=== PATIENT | male | born 1990 | race Caucasian/White ===

== ENCOUNTER 2021-04-29 14:10 | Emergency (ER) | payer OTHER, SELFPAY ==
--- NOTE | ~2021-04-29 | CT_ITS ---
EXAMINATION: CT pelvis w con EXAM DATE: 04/29/2021 15:33 INDICATION: Primary rectal pain. Hemorrhoids or thrombosed hemorrhoids. Hematochezia. TECHNIQUE: Spiral CT pelvis was performed following intravenous injection of 100 mL Omnipaque 350. Axial, coronal and sagittal images were reviewed. The dose-length product (DLP) for this examination was 698.54 mGy-cm. The exposure was tailored according to patient size (auto mA exposure control), and iterative reconstruction (ASIR) was used as additional dose reduction technique. There is no ibeth or study for comparison. FINDINGS: Rectum unremarkable by CT standards. No inguinal or pelvic lymphadenopathy. No pelvic venou s thrombosis. Prostate normal in size. Bladder unremarkable. Normal appendix identified. There are no osseous abnormalities identified. IMPRESSION: Normal CT pelvis examination. Reviewed, dictated and finalized at location B.
[2021-04-29 14:18] VITALS: BP 134/104; PULSE 100; RESP 17; TEMP 35.9; O2SAT 100
[2021-04-29 15:01] LABS: Basophils Percent Auto 0.4 % (0.2-1.2); Eosinophils Percent Auto 0.4 % (0-4.4); Hematocrit 46.1 % (42.0-52.0); Hemoglobin 16.1 g/dL (14.0-18.0); Immature Granulocyte Absolute 0.05 K/mm3 (0.00-0.031); Immature Granulocyte Percent A 0.5 % (0-0.5); Lymphocytes Absolute Auto 1.88 K/mm3 (0.9-3.2); Lymphocytes Percent Auto 16.9 % (18.3-44.2); Mean Corpuscular HGB Conc 34.9 g/dl (32-36); Mean Corpuscular Hemoglobin 30.1 pg (26-34); Mean Corpuscular Volume 86.2 fl (80-100); Monocytes Absolute Auto 0.7 K/mm3 (0.1-0.6); Monocytes Percent Auto 6.2 % (2.6-8.5); Neutrophils Absolute Auto 8.4 K/mm3 (1.3-6.7); Neutrophils Percent Auto 75.6 % (45.5-73.1); Platelet Count Result 272 k/mm3 (150-375); Red Blood Count 5.35 M/mm3 (4.6-6.20); Red Cell Distribution Width 12.8 % (11.5-14.5); White Blood Count 11.1 K/mm3 (4.5-10.0)
[2021-04-29] MEDS: metroNIDAZOLE 500 MG/ISO 100ML 500 MG/100 ML BAG 100 MG IVPB (15:02)
[2021-04-29] MEDS: SODIUM CHLORIDE 0.9% IV 1,000 ML 999 ML IV CONT (15:02)
[2021-04-29] MEDS: KETOROLAC 30 MG/ML VIAL (*BKC) IV PUSH (15:02)
[2021-04-29 15:14] LABS: Anion Gap 9 mmol/L (8-16); Blood Urea Nitrogen 6 mg/dL (9-20); Calcium 9.6 mg/dL (8.4-10.2); Carbon Dioxide 29 mmol/L (22-30); Chloride 101 mmol/L (98-107); Estimated CRCL calculation 120 ml/min; Estimated Glomerular Filt Rate > 60; Glucose 98 mg/dL (75-110); Potassium 4.1 mmol/L (3.4-5.0); Sodium 139 mmol/L (137-145)
--- NOTE | 2021-04-29 17:06 | ED.GENADULT ---
HPI - General Adult General Chief complaint: Unspecified Stated complaint: rectal pain Time Seen by Provider: 04/29/21 14:33 Source: patient and RN notes reviewed Mode of arrival: ambulatory Limitations: no limitations History of Present Illness HPI narrative: Patient is a 31-year-old male who presents with several days duration of pain of the rectum with swelling believe that he may have a hemorrhoid has been trying hemorrhoid preparations with no improvement patient denies any fever chills nausea vomiting or similar occurrence in the past patient on arrival to emergency department from urgent care for evaluation Related Data Allergies Allergy/AdvReac Type Severity Reaction Status Date / Time No Known Allergies Allergy Verified 04/29/21 14:24 Review of Systems Review of Systems: All systems reviewed & are unremarkable except as noted in HPI and below PMFSH Social History Social History (Updated 04/29/21 @ 17:10 by Markus Aguila PA-C) Smoking status: Never smoker Gender identity (if verbalized by the patient): Male Exam Narrative: Exam Narrative: GENERAL: Well-appearing, well-nourished, and in no acute distress. HEAD: Normocephalic, atraumatic. EYES: PERRLA and EOMI. ENT: Nares clear, no rhinorrhea or epistaxis. Mucous membranes moist. CHEST: Clear to auscultation. No respiratory distress. No wheezes rales or rhonchi HEART: Regular rate and rhythm. No murmur heard. Normal peripheral pulses. RECTAL EXAM: Patient with 2 cm x 1-1/2 cm tender swollen area in the perirectal without cellulitic changes purulent drainage appears from the rectum on palpation of the lesion EXTREMITIES: Normal range of motion. No edema. SKIN: Warm, dry, no rash. NEURO: No focal deficits. Alert and oriented x3. PSYCH: Normal mood and affect. Course Course Emergency Course: Patient in the room no distress aware of case findings treatment plan diagnosis agreeing to follow-up with general surgery aware of discussions with general surgery hydrated the emergency department with improvement of symptoms Consultations Consultation #1: Discussed case with Dr. Moeller who would like a I&D of the lesion no antibiotics and to follow in clinic on Tuesday no packing is necessary Date: 04/29/21 Time: 17:11 Vital Signs Vital signs: Vital Signs Temperature 96.6 F L 04/29/21 14:18 Pulse Rate 100 04/29/21 14:18 Respiratory Rate 17 06/02/21 14:18 Blood Pressure 134/104 H 04/29/21 14:18 Pulse Oximetry 100 04/29/21 14:18 Temperature 96.6 F L 04/29/21 14:18 Pulse Rate 100 04/29/21 14:18 Respiratory Rate 17 04/29/21 14:18 Blood Pressure 134/104 H 04/29/21 14:18 Pulse Oximetry 100 04/29/21 14:18 Procedures Abscess I/D carleen-rectal: Date of Incision: 04/29/21 Time of Incision: 17:12 Local Anesthetic: lidocaine 1% and with epi Technique: incised with #11 blade Amount of fluid expressed (mL): 4 Irrigation: No Packing used?: iodoform I&D Results: Pus and Blood Medical Decision Making MDM Narrative Medical decision making narrative: Patient had I&D of the abscess in the perirectal and will follow with primary care and general surgery felt appropriate for outpatient reevaluation given reasons to return Vital Signs Vital Signs: Vital Signs Temperature 96.6 F L 04/29/21 14:18 Pulse Rate 100 04/29/21 14:18 Respiratory Rate 17 04/29/21 14:18 Blood Pressure 134/104 H 04/29/21 14:18 Pulse Oximetry 100 04/29/21 14:18 Temperature 96.6 F L 04/29/21 14:18 Pulse Rate 100 04/29/21 14:18 Respiratory Rate 17 04/29/21 14:18 Blood Pressure 134/104 H 04/29/21 14:18 Pulse Oximetry 100 04/29/21 14:18 Lab Data Result diagrams: 04/29/21 14:56 04/29/21 14:56 Labs: Lab Results 04/29/21 04/29/21 Range/Units 14:56 14:56 WBC 11.1 H (4.5-10.0) K/mm3 RBC 5.35 (4.6-6.20) M/mm3 Hgb 16.1 (14.0-18.0) g/dL Hct 46.1
== END 2021-04-29 17:30 | disposition home or self-care (01) ==
PROVIDERS: Emergency Medicine Emergency Medical Services; Emergency Provider Emergency Medicine
DX: K61.1 Rectal abscess (principal)
CPT/HCPCS: 36415; 46040; 72193; 80048; 85025; 86140; 96365; 96375; 99284; J1885; J7030; Q9967

== ENCOUNTER 2021-05-05 01:15 | Day surgery (SDC) | payer OTHER, SELFPAY ==
[2021-05-04 15:19] VITALS: BMI 31.2
[2021-05-05 11:52] VITALS: BP 136/94; PULSE 89; RESP 20; TEMP 36.2; O2SAT 99
--- NOTE | 2021-05-05 12:21 | P.PNAN_ITS ---
Anes - Initial Pre Proc Eval Procedure: Operation Date: 05/05/21 13:30 Proposed Procedures p Incision and Debridement Kavita-Rectal Abscess - Rafiq Moeller MD Date/Time: 05/05/21 12:21 Surgeon: Rafiq Moeller MD Pre Op Diagnosis: perirectal abscess Patient Data Age: 31 Gender: M Height: 5 ft 11 in Weight: 101.7 kg Allergies Allergy/AdvReac Type Severity Reaction Status Date / Time No Known Allergies Allergy Verified 05/05/21 11:36 Home Medications Medication Instructions Recorded Confirmed Type ibuprofen [IBU] 600 mg PO QID PRN #7 tablet 04/29/21 05/05/21 Rx alprazolam [Xanax] 0.25 mg PO PRN PRN 05/04/21 05/05/21 History tramadol 50 mg PO PRN PRN 05/04/21 05/05/21 History Patient hx anesthesia problems: none Family hx anesthesia problems: none PMFSH Past Medical History Medical History Anxiety Asthma Psoriasis Surgical History Surgical History H/O surgical amputation of finger got the tip back on finger H/O vasectomy Family History Family History Mother Mitral valve prolapse Grandparent Cancer Other Hypertension Social History Social History Smoking status: Current every day smoker Alcohol intake: current Alcohol use details: 1-2 DRINKS PER MONTH Substance use: unknown Living arrangements: alone Additional occupation/education comments: [employer] Gender identity (if verbalized by the patient): Male Spiritual care concerns: No Anes - Eval Final PreProcedure Day of Procedure 05/05/21 12:21 Patient weight: overweight Heart: regular rate and rhythm Lungs: decreased breath sounds Airway: Mallampati scale class II Neurological: alert and oriented Last oral intake: >/= 8 hours ASA classification: II Emergent: no Anesthetic plan: proceed Anesthesia type and monitoring: general ETT and standard monitoring Informed Consent: The patient's anesthetic plan and its attendant risks and benefits were discussed with the patient/family/POA. Questions were solicited and answers provided to the satisfaction of the patient/family/POA.
[2021-05-05] MEDS: LACTATED RINGERS 1,000 ML 30 ML IV CONT ×2 (12:40→14:22)
--- NOTE | 2021-05-05 12:52 | WPDHPUPDATE1 ---
History and Physical Update Update Date/Time: 05/05/21 12:52 History and Physical has been reviewed, including an updated exam of the patient. There are NO changes in the patient's condition. Risks, benefits, and alternatives have been discussed and questions answered. Patient agrees to proceed with procedure.
[2021-05-05] MEDS: ACETAMINOPHEN 500 MG TABLET 1000 MG PO (12:55)
[2021-05-05] MEDS: KETOROLAC 15 MG/ML VIAL (*BKC) IV PUSH (12:55)
[2021-05-05] MEDS: ceFAZolin 2 GM/D5W 50 ML 2 GM/50 ML BAG IVPB (13:16)
--- NOTE | 2021-05-05 13:59 | P.OP_ITS ---
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 He was noted in the office and found to have what appears to be a fistula in ANO with a draining perirectal abscess. The external opening was in the right posterior quadrant. He is taken to surgery now for incision and drainage or fistulotomy. Findings There was still purulent drainage but the abscess was essentially resolved. There was a well-defined intersphincteric fistula with the external opening in the right posterior quadrant and the internal opening in the posterior midline. This was a short fistula about 2 cm. Description of Procedure The patient was taken to surgery and induced into general anesthesia. He was then turned and placed in prone charlie-knife position. The buttocks were taped apart. Prep and drape was carried out. The Iggy-Marlene anoscope was introduced into the rectum. Purulent drainage from the posterior midline was easily seen. Using a rectal probe, I passed the probe without difficulty from the external opening through the posterior midline at the dentate line. This was a short well-defined tract that appeared to be intersphincteric but still quite superficial. I then anesthetized the area of the tract and the surrounding rectum with local anesthetic.Then, using the cautery, I unroofed the fistula tract. I curetted the base of the fistula. I then infiltrated additional local anesthetic into the open wound. Gentle pressure was held for hemostasis. All looked good. Wound was dressed with Xeroform gauze fluffs and promise panties. The patient was returned to a supine position. He was awakened extubated and then taken to recovery in good condition. Sponge and needle counts were correct x2. Estimated Blood Loss 5 Drains No Packing No Pathology none sent Complications None Condition stable Disposition PACU
[2021-05-05 14:06] VITALS: BP 102/57; PULSE 81; RESP 14; TEMP 36.6; O2SAT 100
[2021-05-05 14:20] VITALS: BP 110/58; PULSE 74; RESP 20; O2SAT 100
[2021-05-05 14:35] VITALS: BP 112/70; PULSE 68; RESP 20; O2SAT 100
[2021-05-05 14:44] VITALS: BP 126/87; PULSE 81; RESP 16
[2021-05-05 15:14] VITALS: BP 134/80; PULSE 59; RESP 16
== END 2021-05-05 15:18 | disposition home or self-care (01) ==
PROVIDERS: Visit Provider Surgery
PROC: (CPT 46040; principal; 2021-05-05 13:30)
DX: K60.3 Anal fistula (principal); K62.89 Other specified diseases of anus and rectum; F41.9 Anxiety disorder, unspecified; G43.909 Migraine, unspecified, not intractable, without status migrainosus; L40.9 Psoriasis, unspecified
CPT/HCPCS: 46275; A9270; J0330; J0690; J1885; J2250; J2704; J3010; J7120